=== PATIENT | female | born 1955 | race Native Hawaiian/Other Pacific Islander ===

== ENCOUNTER 2021-10-16 12:06 | Emergency (ER) | payer MEDICARE, OTHER, SELFPAY ==
[2021-10-16] VITALS (11 sets, daily range): BP systolic 123–150; BP diastolic 67–76; PULSE 72–89; RESP 16–24; TEMP 36.6–37.3; O2SAT 94–98; BMI 34.2
[2021-10-16 13:42] LABS: COVID19 -Nasal RAPID Negative (Negative)
[2021-10-16] MEDS: ALBUTEROL/IPRATROPIUM 3 ML AMPUL INH (13:51)
--- NOTE | 2021-10-16 13:56 | ED_ITS ---
HPI - Asthma General Chief Complaint: Asthma Stated Complaint: ongoing cold, progressively getting worse Time Seen by Provider: 10/16/21 13:37 Source: patient Mode of arrival: Ambulatory History of Present Illness HPI Narrative: Patient is a 66-year-old female. Is a daily smoker. Approximately 1 month ago was seen an outside facility. Was given an albuterol inhaler. Was also prescribed Advair but there has been some issues with insurance and she has yet to fill this. She was also given a course of doxycycline. She is here because she states she is still having quite a bit of wheezing. She has been using her inhaler without much improvement. She states she is coughing. No fevers. No chest pain. No diagnosis of asthma no diagnosis of COPD. Related Data Allergies Allergy/AdvReac Type Severity Reaction Status Date / Time No Known Drug Allergies Allergy Verified 10/16/21 12:09 Review of Systems Constitutional Constitutional: Reports system reviewed and no additional complaints, except as documented ENT Ears, Nose, Mouth, and Throat: Reports system reviewed and no additional complaints, except as documented Cardiovascular Cardiovascular: Reports system reviewed and no additional complaints, except as documented Respiratory Respiratory: Reports system reviewed and no additional complaints, except as documented Integumentary/Breasts Skin/Breast: Reports system reviewed and no additional complaints, except as documented Neurologic Neurologic: Reports system reviewed and no additional complaints, except as documented Hematologic/Lymphatic On Anticoagulants: No Patient History Social History Smoking Status: Current every day smoker Smoking Status: Current every day smoker alcohol intake frequency: holidays/special occasions only Substance Use Type: does not use Exam Initial Vital Signs Initial Vital Signs: Vital Signs Temperature 97.9 F 10/16/21 12:10 Pulse Rate 88 10/16/21 12:10 Respiratory Rate 24 10/16/21 12:10 Blood Pressure 138/68 10/16/21 12:10 Pulse Oximetry 96 10/16/21 12:10 HENMT Head: normal to inspection and normocephalic Resp Effort & Inspection: normal respiratory effort Auscultation: rhonchi and wheezes Cardio Rate: regular rate Rhythm: regular rhythm Skin General: no rashes or lesions noted Neuro General: patient alert, patient awake and moves all extremities Extrem General: normal to inspection and capillary refill normal Psych Appearance: grossly normal Course Orders Ordered: ED Orders 10/16/21 13:03 RT Consult Eval and Treat NOW 10/16/21 13:16 COVID19 -Nasal swab/Pre-Proc Stat 10/16/21 13:57 XR chest 1V Stat Discontinued Medications Albuterol/Ipratropium (Albuterol/Ipratropium 3 Ml Ampul) 3 ml INH NOW ONE Stop: 10/16/21 13:34 Last Admin: 10/16/21 13:51 Dose: 3 ml Documented by: CTR.TVO Vital Signs Vital signs: Vital Signs - 8 hr 10/16/21 12:10 10/16/21 12:58 10/16/21 12:59 Temperature 97.9 F Pulse Rate 88 89 Respiratory Rate 24 Blood Pressure 138/68 150/74 H Pulse Oximetry 96 98 95 10/16/21 13:00 10/16/21 13:02 10/16/21 13:30 Temperature 99.2 F Pulse Rate 84 83 74 Respiratory Rate 16 Blood Pressure 147/70 H 136/76 Pulse Oximetry 95 95 94 10/16/21 13:36 10/16/21 13:51 10/16/21 14:00 Temperature Pulse Rate 72 Respiratory Rate 18 Blood Pressure 123/67 Pulse Oximetry 96 94 96 10/16/21 14:27 10/16/21 14:30 Temperature Pulse Rate 77 79 Respiratory Rate Blood Pressure 139/68 134/71 Pulse Oximetry 95 94 MDM - Asthma Lab Data Labs: Lab Results 10/16/21 Range/Units 13:16 SARS-CoV-2 (PCR) Negative (Negative) Imaging Data Chest x-ray: Radiologist's Impression: [address] [address] XRay Report Signed Patient: Caitlin Nesbitt MR#: [id number] : 1955 Acct:[id number] Age/Sex: 66 / F Date of Service: 10/16/21 Loc: ED Accession Number: [id number] ?? Procedure: XR chest 1V Ordering Provider: Geovany Benson D.O. PROCEDURE:? XR CHEST 1V ? INDICATIONS:? productive cough eval for PNA ? TECHNIQUE:? One view of the chest was acquired.? ? COMPARISON:? None. ? FINDINGS:? ? Surgical changes and devices:? None.? ? Lungs and pleura:? Minimal patchy interstitial prominence can be seen.? No pleural effusions or pneumothorax.? ? Mediastinum:? Mediastinal contours appear normal.? Heart size is normal.? ? Bones and chest wall:? No suspicious bony lesions.? Age-appropriate bony de generative changes are seen. ? Overlying soft tissues appear unremarkable.? IMPRESSION:? Minimal patchy interstitial prominence is seen.? Please consider atypical infiltrate, including COVID pneumonia. ? If there is clinical concern for a developing pulmonary process, a short-term followup chest series (with PA and lateral views, performed in deep inspiration) is suggested for further evaluation. ? ? Dictated by: Jose Carlos Carreon M.D. on 10/16/2021 at 13:24 ? ? Approved by: Jose Carlos Carreon M.D. on 10/16/2021 at 13:25? MDM Narrative Medical decision making narrative: Patient did feel better and sounds much better after nebulizer. I do suspect there is a component of COPD to her presentation although she does not carry this specific diagnosis. We will send home with a spacer for her albuterol inhaler. Despite the chest x-ray do have low suspicion for pneumonia. She just completed a course of doxycycline. I do not feel we should start her on another course of antibiotics. Also considered steroids but I have a strong suspicion that the Advair will help as well. states that this should be worked out over the next couple days. Will discharge home with instructions to use your albuterol. She was given return precautions. She expressed understanding and agreement. Discharge Plan Departure Patient Disposition: Home Clinical Impression: Wheezing Instructions: DI for Asthma -- Adult Activity Restrictions/Additional Instructions: I do recommend that you contact the [facility] back [phone]. The can help you establish a primary provider. Use all the medications as directed. Return to the emergency department for any new or worsening symptoms. Referrals: Siobhan Oden, [Primary Care Provider] -
--- NOTE | 2021-10-16 13:57 | DI.RAD.S_ITS ---
PROCEDURE: XR CHEST 1V INDICATIONS: productive cough eval for PNA TECHNIQUE: One view of the chest was acquired. COMPARISON: None. FINDINGS: Surgical changes and devices: None. Lungs and pleura: Minimal patchy interstitial prominence can be seen. No pleural effusions or pneumothorax. Mediastinum: Mediastinal contours appear normal. Heart size is normal. Bones and chest wall: No suspicious bony lesions. Age-appropriate bony degenerative changes are seen. Overlying soft tissues appear unremarkable. IMPRESSION: Minimal patchy interstitial prominence is seen. Please consider atypical infiltrate, including COVID pneumonia. If there is clinical concern for a developing pulmonary process, a short-term followup chest series (with PA and lateral views, performed in deep inspiration) is suggested for further evaluation. Dictated by: Jose Carlos Carreon M.D. on 10/16/2021 at 13:24 Approved by: Jose Carlos Carreon M.D. on 10/16/2021 at 13:25
== END 2021-10-16 14:49 | disposition home or self-care (01) ==
PROVIDERS: Emergency Provider Emergency Medicine; PCP Family Medicine
DX: R06.2 Wheezing (principal); Z20.822 Contact with and (suspected) exposure to COVID-19
CPT/HCPCS: 71045; 87635; 94150; 94640; 99283; C9803

== ENCOUNTER → 2021-12-18 11:56 | Outpatient (CLI) | payer MEDICARE, OTHER, SELFPAY ==
[2021-12-18 12:53] LABS: Hematocrit 44.4 % (36-46); Hemoglobin 15.3 g/dL (12.0-16.0); Mean Corpuscular HGB Conc 34.4 % (30-36); Mean Corpuscular Hemoglobin 29.6 PG (26-34); Mean Corpuscular Volume 86.2 fL (80-100); Platelet Count 233 X10^3/uL (150-400); Red Blood Cell Count 5.15 X10^6/uL (4.0-5.2); Red Cell Distribution Width 14.6 % (11.6-14.8); White Blood Cell Count 6.5 X10^3/uL (4.5-11.0)
[2021-12-18 12:58] LABS: Hemoglobin A1C% w Est Avg Glu 5.8 % (4.0-6.0)
[2021-12-18 13:11] LABS: Alanine Aminotransferase 11 IU/L (<35); Albumin 4.4 g/dL (3.5-5.0); Albumin Globulin Ratio 1.5 (1.0-2.8); Alkaline Phosphatase 61 U/L (38-126); Aspartate Aminotransferase 19 IU/L (14-36); BUN Creatinine Ratio 15.5 (6-22); Bilirubin Total 0.5 mg/dL (0.2-1.3); Blood Urea Nitrogen 11 mg/dL (7-17); Carbon Dioxide 27 mmol/L (22-32); Chloride 105 mmol/L (98-107); Cholesterol 164 mg/dL (140-199); Estimated Glomerular Filt Rate > 60 mL/min (>60); Glucose 109 mg/dL (80-110); HDL Cholesterol 57 mg/dL (40-60); HEMOLYSIS < 15 (0-50); LDL Cholesterol Calculated 78 mg/dL (<100); Potassium 3.8 mmol/L (3.4-5.1); Sodium 141 mmol/L (137-145); Total Protein 7.4 g/dL (6.3-8.2); Triglycerides 145 mg/dL (35-150)
[2021-12-18 13:35] LABS: TSH w/ Reflex to FT4 1.23 uIU/mL (0.47-4.68)
== END ==
PROVIDERS: PCP Internal Medicine; Referring Provider Internal Medicine; Visit Provider Internal Medicine
DX: R73.01 Impaired fasting glucose (principal); J45.20 Mild intermittent asthma, uncomplicated
CPT/HCPCS: 36415; 80053; 80061; 83036; 84443; 85027

== ENCOUNTER → 2022-04-23 11:04 | Outpatient (CLI) | payer MEDICARE, OTHER, SELFPAY ==
--- NOTE | 2022-04-23 11:05 | DI.CT.S_ITS ---
PROCEDURE: CT CHEST WO CON INDICATIONS: followup abnormal chest xray TECHNIQUE: Noncontrast 5 mm thick sections acquired from the pulmonary apices to the posterior costophrenic angles. 1 mm lung window, 5 mm thick coronal and sagittal and 7 mm axial MIP reformats were then acquired. For radiation dose reduction, the following was used: automated exposure control, adjustment of mA and/or kV according to patient size. COMPARISON: [facility], , XR CHEST 1V, 10/16/2021, 14:10. FINDINGS: Image quality: Excellent. Lungs and pleura: No acute air space opacities. A calcified granuloma is present in the left lower lung. No pleural effusions or pneumothorax. Central and peripheral airways are patent and normal in caliber. Mediastinum: Heart size is normal. No pericardial effusion. No mediastinal adenopathy by size criteria. Thoracic aorta and central pulmonary arteries are normal in size. Scattered atheromatous calcifications are present within the aortic arch. Esophagus is normal in caliber. No hiatal hernia. Bones and chest wall: No suspicious bony lesions. No vertebral body compression fractures. No axillary or supraclavicular adenopathy by size criteria. Thyroid gland is unremarkable . Abdomen: Visualized upper abdominal solid organs and bowel loops appear normal in the absence of contrast. IMPRESSION: 1. No acute pulmonary findings. No suspicious pulmonary nodules or mass lesions. No discrete findings to correlate with the chest x-ray dated 10/23 09/18. Dictated by: Shawnee Alston M.D. on 04/23/2022 at 16:52 Approved by: Shawnee Alston M.D. on 04/23/2022 at 16:56
== END ==
PROVIDERS: PCP Internal Medicine; Referring Provider Internal Medicine; Visit Provider Internal Medicine
DX: Z13.820 Encounter for screening for osteoporosis (principal); M85.851 Other specified disorders of bone density and structure, right thigh; M85.852 Other specified disorders of bone density and structure, left thigh; R93.89 Abnormal findings on diagnostic imaging of other specified body structures; J45.20 Mild intermittent asthma, uncomplicated; Z78.0 Asymptomatic menopausal state; F17.200 Nicotine dependence, unspecified, uncomplicated
CPT/HCPCS: 71250; 77080

== ENCOUNTER → 2022-06-02 07:15 | Outpatient (CLI) | payer MEDICARE, OTHER, SELFPAY ==
--- NOTE | 2022-06-02 07:16 | DI.MG.S_ITS ---
BILATERAL DIGITAL SCREENING MAMMOGRAM 3D/2D WITH CAD: 06/02/2022 CLINICAL: Routine screening. Comparison is made to exams dated: 08/09/2020 mammogram, 06/24/2018 mammogram, and 06/02/2017 mammogram - outside location. There are scattered areas of fibroglandular density in both breasts (category b / 25%-50% glandular tissue). Current study was also evaluated with a Computer Aided Detection (CAD) system. No significant masses, calcifications, or other findings are seen in either breast. There has been no significant interval change. IMPRESSION: NEGATIVE There is no mammographic evidence of malignancy. A 1 year screening mammogram is recommended. Based on the Tyrer Cuzick model (a risk assessment model) the patient's lifetime risk is 3.1% and her 10 year risk is 1.7%. According to the ACR, ACS, and NCCN guidelines, an annual breast MRI exam along with mammogram is recommended if the patient's lifetime risk is 20% or greater. This exam was interpreted at Station ID: [id number]. NOTE: For mammograms, a report in lay terms will be sent to the patient. Approximately 15% of breast malignancies will not be visualized mammographically. In the management of a palpable breast mass, a negative mammogram must not discourage biopsy of a clinically suspicious lesion. Electronically Signed By: Matias coburn/savage:06/02/2022 12:26:52 letter sent: Normal Exam ACR BI-RADS Category 1: Negative 3341F
== END ==
PROVIDERS: PCP Internal Medicine; Referring Provider Internal Medicine; Visit Provider Internal Medicine
DX: Z12.31 Encounter for screening mammogram for malignant neoplasm of breast (principal)
CPT/HCPCS: 77063; 77067

== ENCOUNTER 2023-04-12 21:24 | Emergency (ER) | payer OTHER, MEDICARE, SELFPAY ==
[2023-04-12 21:33] VITALS: BP 144/67; PULSE 69; RESP 16; TEMP 36.6; O2SAT 97; BMI 30.7
--- NOTE | 2023-04-12 22:55 | ED.FALL ---
HPI - Fall General Chief Complaint: Fall Stated Complaint: fell and hit face/gash on nose Time Seen by Provider: 04/12/23 22:55 Source: patient Mode of arrival: Ambulatory History of Present Illness HPI Narrative: 68-year-old woman with a history of hyperlipidemia who [place] stumbled over a log fell forward and hit her glasses which caused abrasion to the bridge of her nose. She had a minor contusion to her right knee she was able to get up and walk back to the car without any difficulties she is complaining of a low-grade headache from the laceration over the bridge of her nose but no other findings. She is not anticoagulated she complains of no recent fevers, cough, chills, palpitations, shortness of breath Related Data Previous Rx's Medication Instructions Recorded albuterol sulfate 90 mcg/actuation 1 puff inhalation DAILY #8.5 grams 03/28/22 aerosol inhaler rosuvastatin 10 mg tablet 10 mg PO DAILY #90 tabs 03/28/22 azithromycin 250 mg tablet See Rx Instructions PO .COMPLEX #6 01/09/23 tabs prednisone 10 mg tablet See Rx Instructions .Route 01/09/23 .COMPLEX #20 tabs Allergies Allergy/AdvReac Type Severity Reaction Status Date / Time No Known Drug Allergies Allergy Verified 01/09/23 10:41 Review of Systems Review of Systems Narrative: Pertinent positive and negative findings as per HPI Patient History Medical History Abnormal chest xray Advanced directives, counseling/discussion Asthma Chicken pox (~1994) History of colonic polyps Impaired fasting glucose Measles (~1964) Medicare annual wellness visit, initial Menopausal syndrome Mumps (~1966) Obesity (BMI 30.0-34.9) Osteopenia Slow transit constipation Tobacco use disorder Surgical History Anesthesia History of bladder surgery (~2015) History of knee replacement (~2004) Family History Father Diabetes mellitus Mother Diabetes mellitus Hyperlipidemia Hypertension Brother Diabetes mellitus Hyperlipidemia Sister Diabetes mellitus Hyperlipidemia Family/Other Diabetes mellitus Hypertension Social History marital status: details: 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 Able to give a complete and coherent history. Well-nourished well-developed HEENT: Moist mucous membranes, normal sclera with reactive pupils, she has a small flap like laceration over the bridge of her nose where her glasses cut her. She does not have tenderness over her forehead or her maxilla. Does not note any dental malocclusion Neck: No midline cervical spine tenderness, no cervical paraspinous muscle spasm and no tenderness into the trapezius muscles bilaterally Respiratory: Lungs are clear to auscultation, no wheezing no rales no rhonchi. Full and symmetrical air movement Cardiac: Regular rate and rhythm no murmurs no bruits Abdomen: Soft, nontender, good bowel tones, no flank pain Skin: Warm and dry, no rashes Neurologic: Grossly neurologically intact with no obvious asymmetries or abnormalities Extremities: Small abrasion to the right knee with normal range of motion to the knee and hip. Psych: Cooperative, appropriate insight and affect Procedures Laceration Repair 1 cm bridge of nose: Time of procedure: 23:08 Site: face Size (cm): 1 Description: flap Depth: simple, single layer Skin layer closed with: dermabond Course Vital Signs Vital signs: Vital Signs - 8 hr 04/12/23 21:33 Temperature 97.9 F Pulse Rate 69 Respiratory Rate 16 Blood Pressure 144/67 H Pulse Oximetry 97 Oxygen Delivery Method Room Air MDM - Fall MDM Narrative Medical decision making narrative: CC: Fall with laceration to the bridge of her nose Complicating co-morbidities: Hyperlipidemia Data collected from: patient, daughter Medical records reviewed: Primary care notes reviewed Differential considered: Simple laceration, nasal bone fracture, midface fracture, intracranial hemorrhage, cervical spine injury, knee injury, upper extremity injuries Exam documented above, pertinent findings include: Minor laceration over the bridge of the nose and physical exam does not support any additional abnormalities musculoskeletal or axial skeletal montero Treatments: Skin glue was used to reapproximate the flap edges of the laceration over the bridge of the nose Discussion: 68-year-old woman who suffered a mechanical fall and mostly hit her glasses which caused laceration to the middle of her nose. She is going to have some black eyes but there does not appear to be any underlying bony injury, I am not concerned for intracranial hemorrhage or cervical spine damage. She does not have tenderness with full range of motion at shoulders elbows wrists. She is able to walk without difficulty and not complaining of any hip knee ankle or foot abnormalities. Did warn her that she likely is going to have some tenderness in all of these places over the next 24-48 hours. She is given ibuprofen and Tylenol to help with the pain. Reviewed reasons to return to the emergency department. Questions were answered and she is safe for discharge Discharge Plan Departure Patient Disposition: Home Clinical Impression: Fall Qualifiers: Encounter type: initial encounter Qualified Code(s): W19.XXXA - Unspecified fall, initial encounter Laceration of nose Qualifiers: Encounter type: initial encounter Qualified Code(s): S01.21XA - Laceration without foreign body of nose, initial encounter Instructions: DI for Laceration Repair-Skin Glue Activity Restrictions/Additional Instructions: Thank you for coming in today I am so glad that you had only a minor cut over the bridge of her nose with your fall today. On exam I did not find any areas that made me concerned for broken bones. I am not concerned for injury to your neck or bleeding in your brain. You are going to be sore in multiple places tomorrow. Using 400 mg of ibuprofen (2 leje-jhb-szqefec pills) and 1 Tylenol every 6 hours can be very helpful in controlling pain. I used skin glue to fix cut to the bridge of her nose. It would be best if you can leave this glue in place for up to 5 days. It will begin to peel off and you can gently help it at that point. It is okay to wash her face simply path the area dry and do not scrub or rub at the glued area If you find that you are getting worse or develop any new symptoms, please feel free to return to the emergency department for further evaluation. Prescriptions: No Action albuterol sulfate 90 mcg/actuation HFA aerosol inhaler 1 puff inhalation DAILY Qty: 8.5 11RF rosuvastatin 10 mg tablet 10 mg PO DAILY Qty: 90 3RF prednisone 10 mg tablet See Rx Instructions .Route .COMPLEX Qty: 20 2RF Rx Instructions: 4 tablets daily for 2 days, then 3 tablets daily for 2 days, then 2 tablets daily for 2 days, then 1 tablet daily for 2 days then stop; azithromycin 250 mg tablet See Rx Instructions PO .COMPLEX Qty: 6 0RF Rx Instructions: For 250 mg dose pack: take 500 mg today (day 1), then 250 mg for 4 days (days 2-5) PO Referrals: Bang Liu MD [Primary Care Provider] - Stand Alone Forms: Patient Portal/API, Work Release Note
[2023-04-12] MEDS: ACETAMINOPHEN 325 MG TABLET PO (23:07)
[2023-04-12] MEDS: IBUPROFEN 400 MG TABLET PO (23:08)
== END 2023-04-12 23:24 | disposition home or self-care (01) ==
PROVIDERS: Emergency Provider Emergency Medicine; PCP Internal Medicine
DX: S01.21XA Laceration without foreign body of nose, initial encounter (principal); W01.0XXA Fall on same level from slipping, tripping and stumbling without subsequent striking against object, initial encounter
CPT/HCPCS: 12011; 99282; 99283

== ENCOUNTER → 2023-04-23 15:24 | Outpatient (CLI) | payer OTHER, MEDICARE, SELFPAY ==
[2023-04-23 16:20] LABS: Hemoglobin A1C% w Est Avg Glu 5.6 % (4.0-6.0)
[2023-04-23 16:39] LABS: Aspartate Aminotransferase 22 IU/L (14-36); BUN Creatinine Ratio 20.5 (6-22); Blood Urea Nitrogen 15 mg/dL (7-17); Calcium 9.2 mg/dL (8.4-10.2); Carbon Dioxide 26 mmol/L (22-32); Chloride 104 mmol/L (98-107); Cholesterol 152 mg/dL (140-199); Estimated Glomerular Filt Rate > 60 mL/min (>60); Glucose 97 mg/dL (80-110); HDL Cholesterol 46 mg/dL (40-60); HEMOLYSIS 22 (0-50); LDL Cholesterol Calculated 65 mg/dL (<100); Potassium 3.8 mmol/L (3.4-5.1); Sodium 138 mmol/L (137-145); Triglycerides 204 mg/dL (35-150)
== END ==
PROVIDERS: PCP Internal Medicine; Referring Provider Internal Medicine; Visit Provider Internal Medicine
DX: E78.2 Mixed hyperlipidemia (principal); R73.01 Impaired fasting glucose
CPT/HCPCS: 36415; 80048; 80061; 83036; 84450

== ENCOUNTER → 2023-06-25 13:42 | Outpatient (CLI) | payer OTHER, MEDICARE, SELFPAY ==
--- NOTE | 2023-06-25 | DI.MG.S_ITS ---
BILATERAL DIGITAL SCREENING MAMMOGRAM 3D/2D WITH CAD: 06/25/2023 CLINICAL: Routine screening. Comparison is made to exams dated: 06/02/2022 mammogram - [facility], 08/09/2020 mammogram, and 06/24/2018 mammogram - outside location. There are scattered areas of fibroglandular density in both breasts (category b / 25%-50% glandular tissue). Current study was also evaluated with a Computer Aided Detection (CAD) system. No significant masses, calcifications, or other findings are seen in either breast. There has been no significant interval change. IMPRESSION: NEGATIVE There is no mammographic evidence of malignancy. A 1 year screening mammogram is recommended. Based on the Tyrer Cuzick model (a risk assessment model) the patient's lifetime risk is 2.9% and her 10 year risk is 1.7%. According to the ACR, ACS, and NCCN guidelines, an annual breast MRI exam along with mammogram is recommended if the patient's lifetime risk is 20% or greater. This exam was interpreted at Station ID: [id number]. NOTE: For mammograms, a report in lay terms will be sent to the patient. Approximately 15% of breast malignancies will not be visualized mammographically. In the management of a palpable breast mass, a negative mammogram must not discourage biopsy of a clinically suspicious lesion. Electronically Signed By: Clint montoya/savage:06/25/2023 14:24:14 letter sent: Normal Exam ACR BI-RADS Category 1: Negative 3341F
== END ==
PROVIDERS: PCP Internal Medicine; Referring Provider Internal Medicine; Visit Provider Internal Medicine
DX: Z12.31 Encounter for screening mammogram for malignant neoplasm of breast (principal)
CPT/HCPCS: 77063; 77067

== ENCOUNTER → 2024-01-20 09:16 | Outpatient (CLI) | payer OTHER, MEDICARE, SELFPAY | LOC: RESP 09:17 | PROVIDERS: PCP Internal Medicine; Referring Provider Internal Medicine; Visit Provider Internal Medicine | DX: J44.9 Chronic obstructive pulmonary disease, unspecified (principal); F17.210 Nicotine dependence, cigarettes, uncomplicated; R94.2 Abnormal results of pulmonary function studies | CPT/HCPCS: 94060; 94726; 94729 ==

== ENCOUNTER → 2024-04-27 16:14 | Outpatient (CLI) | payer OTHER, MEDICARE, SELFPAY ==
[2024-04-27 17:28] LABS: Hematocrit 45.2 % (36-46); Hemoglobin 15.2 g/dL (12.0-16.0); Mean Corpuscular HGB Conc 33.6 % (30-36); Mean Corpuscular Hemoglobin 30.1 PG (26-34); Mean Corpuscular Volume 89.5 fL (80-100); Platelet Count 222 X10^3/uL (150-400); Red Blood Cell Count 5.04 X10^6/uL (4.0-5.2); Red Cell Distribution Width 14.6 % (11.6-14.8); White Blood Cell Count 6.5 X10^3/uL (4.5-11.0)
[2024-04-27 17:48] LABS: Alanine Aminotransferase 12 IU/L (<35); Albumin 4.3 g/dL (3.5-5.0); Albumin Globulin Ratio 1.3 (1.0-2.8); Alkaline Phosphatase 60 U/L (38-126); Aspartate Aminotransferase 21 IU/L (14-36); BUN Creatinine Ratio 16.9 (6-22); Bilirubin Total 0.7 mg/dL (0.2-1.3); Blood Urea Nitrogen 14 mg/dL (7-17); Calcium 9.5 mg/dL (8.4-10.2); Carbon Dioxide 29 mmol/L (22-32); Chloride 102 mmol/L (98-107); Cholesterol 171 mg/dL (140-199); Estimated Glomerular Filt Rate > 60 mL/min (>60); Globulin 3.4 g/dL (1.7-4.1); Glucose 101 mg/dL (80-110); HDL Cholesterol 57 mg/dL (40-60); HEMOLYSIS < 15 (0-50); LDL Cholesterol Calculated 77 mg/dL (<100); Potassium 3.7 mmol/L (3.4-5.1); Sodium 137 mmol/L (137-145); Total Protein 7.7 g/dL (6.3-8.2); Triglycerides 183 mg/dL (35-150)
[2024-04-27 20:43] LABS: Hemoglobin A1C% w Est Avg Glu 5.6 % (4.0-6.0)
== END ==
PROVIDERS: PCP Internal Medicine; Referring Provider Internal Medicine; Visit Provider Internal Medicine
DX: R73.01 Impaired fasting glucose (principal); E78.2 Mixed hyperlipidemia; K59.01 Slow transit constipation
CPT/HCPCS: 36415; 80053; 80061; 83036; 85027

== ENCOUNTER → 2024-05-04 09:11 | Outpatient (CLI) | payer OTHER, MEDICARE, SELFPAY ==
--- NOTE | 2024-05-04 09:12 | DI.CT.S_ITS ---
PROCEDURE: CT LUNG LOW DOSE SCREENING INDICATIONS: tobacco use TECHNIQUE: Noncontrast 2.0-2.5 mm thick sections acquired from the pulmonary apices to the posterior costophrenic angles. 7 mm thick axial MIP, and 5 mm coronal and sagittal reformats were then acquired. For radiation dose reduction, the following was used: automated exposure control, adjustment of mA and/or kV according to patient size. COMPARISON: None. FINDINGS: Image quality: Diagnostic. Lower Neck: No enlarged lymph nodes. Thyroid: No thyroid nodules which require sonographic follow up, per consensus guidelines. Axillae: No enlarged lymph nodes. Chest Wall: Unremarkable. Bones: Unremarkable. Lungs and Pleura: No pneumothorax or pleural effusions. No consolidation or suspicious nodules. Calcified pulmonary granuloma. Heart: Heart size is normal. No pericardial effusion. Thoracic Vessels: The aorta and pulmonary arteries demonstrate normal size. Mediastinum and Alessandra: No enlarged lymph nodes. Esophagus: No wall thickening. No hiatal hernia. Upper Abdomen: Visualized upper abdomen solid organs and bowel loops appear normal. IMPRESSION: No suspicious pulmonary nodules. LUNG-RADS 1; continued annual screening, if eligible. Clinically Significant Non-pulmonary Findings: None. Approved by: Carolina Bustos M.D.,Ph.D. on 05/04/2024 at 23:57
== END ==
LOC: CT 09:11
PROVIDERS: PCP Internal Medicine; Referring Provider Internal Medicine; Visit Provider Internal Medicine
DX: Z12.2 Encounter for screening for malignant neoplasm of respiratory organs (principal); F17.210 Nicotine dependence, cigarettes, uncomplicated
CPT/HCPCS: 71271

== ENCOUNTER → 2025-01-20 08:20 | Outpatient (CLI) | payer OTHER, MEDICARE, SELFPAY ==
--- NOTE | 2025-01-20 08:22 | DI.MG.S_ITS ---
MM screening mammo BI: 01/20/2025. BI-RADS: 1 CLINICAL: 69-year old female for bilateral screening mammogram. Tyrer-Cuzick lifetime risk of 5.7%. Current reported family history of breast cancer: mother. PRIOR EXAMS 06/25/2023, 06/02/2022, 06/24/2018, and 06/02/2017. MAMMOGRAPHY TECHNIQUE: 2D and 3D (tomosynthesis) digital mammographic views obtained, with additional images as needed for full coverage. Current study was also evaluated with a Computer Aided Detection (CAD) system. DENSITY B. There are scattered areas of fibroglandular density. MAMMOGRAPHY FINDINGS Bilateral: No suspicious mass, asymmetry, microcalcification, or other abnormality seen. IMPRESSION: * No evidence of malignancy. RECOMMENDATIONS Bilateral * Annual screening mammography. OVERALL ASSESSMENT CATEGORY BI-RADS-1: Negative. The [employer] recommends annual screening mammography beginning at age 40 for women with average risk of breast cancer. PRELIMINARILY ELECTRONICALLY SIGNED: Haris Martins M.D. on 01/22/2025 at 09:12:42 PM PT ELECTRONICALLY SIGNED: Haris Martins M.D. on 01/22/2025 at 09:12:55 PM PT Interpreting Station ID: [id number]
== END ==
PROVIDERS: PCP Internal Medicine; Referring Provider Internal Medicine; Visit Provider Internal Medicine
DX: Z12.31 Encounter for screening mammogram for malignant neoplasm of breast (principal); Z80.3 Family history of malignant neoplasm of breast
CPT/HCPCS: 77063; 77067

== ENCOUNTER → 2025-05-02 15:09 | Outpatient (CLI) | payer OTHER, MEDICARE, SELFPAY ==
--- NOTE | 2025-05-02 15:13 | DI.RAD.S_ITS ---
PROCEDURE: XR HAND LT 2V INDICATIONS: arthritis TECHNIQUE: 2 views of the hand(s) acquired. COMPARISON: None. FINDINGS: Bones: No fractures or dislocations. Carpal bones are normally aligned. Possible sclerosis in the lunate There is moderate degenerative disease in the 2nd through 5th DIP joints as well as in the 1st IP joint and 3rd and 4th PIP joints. Mild degenerative disease in the radiocarpal joint. There is also positive ulnar variance with significant effacement of the triangular fibrocartilage. Soft tissues: No suspicious soft tissue calcifications. IMPRESSION: 1. Degenerative changes as described. No definite erosions. 2. Positive ulnar variance with effacement of the triangular fibrocartilage. 3. Possible [place] disease, can be further assessed with oblique view. Dictated by: Omar Felipe M.D. on 05/02/2025 at 20:59 Approved by: Omar Felipe M.D. on 05/02/2025 at 21:02
--- NOTE | 2025-05-02 15:13 | DI.RAD.S_ITS ---
PROCEDURE: XR HAND RT 2V INDICATIONS: arthritis TECHNIQUE: 2 views of the hand(s) acquired. COMPARISON: None. FINDINGS: Bones: No fractures or dislocations. Carpal bones are normally aligned. No suspicious bony lesions. There is severe degenerative disease in the 5th DIP joint as well as moderate to severe degenerative disease in the 4th PIP joint and moderate degenerative changes in the 2nd through 4th DIP joints. Mild degenerative disease in the 1st ray as well as in the wrist. Soft tissues: No suspicious soft tissue calcifications. IMPRESSION: Degenerative changes as above, no acute focal osseous lesion or definite erosion seen. Dictated by: Omar Felipe M.D. on 05/02/2025 at 21:02 Approved by: Omar Felipe M.D. on 05/02/2025 at 21:03
[2025-05-02 16:41] LABS: Hemoglobin A1C% w Est Avg Glu 6.1 % (4.0-6.0)
[2025-05-02 16:57] LABS: Blood Urea Nitrogen 13 mg/dL (7-17); Calcium 8.9 mg/dL (8.4-10.2); Carbon Dioxide 28 mmol/L (22-32); Chloride 104 mmol/L (98-107); Cholesterol 166 mg/dL (140-199); Estimated Glomerular Filt Rate > 60 mL/min (>60); Glucose 85 mg/dL (70-99); HDL Cholesterol 62 mg/dL (40-60); HEMOLYSIS < 15 (0-50); Potassium 4.3 mmol/L (3.4-5.1); Sodium 139 mmol/L (137-145); Triglycerides 124 mg/dL (35-150)
[2025-05-02 17:25] LABS: TSH w/ Reflex to FT4 2.05 uIU/mL (0.47-4.68)
== END ==
PROVIDERS: PCP Internal Medicine; Referring Provider Internal Medicine; Visit Provider Internal Medicine
DX: R73.01 Impaired fasting glucose (principal); E78.2 Mixed hyperlipidemia; M15.0 Primary generalized (osteo)arthritis
CPT/HCPCS: 36415; 73120; 80048; 80061; 83036; 84443; 84450

== ENCOUNTER → 2025-05-12 08:24 | Outpatient (CLI) | payer OTHER, MEDICARE, SELFPAY ==
--- NOTE | 2025-05-12 08:25 | DI.CT.S_ITS ---
PROCEDURE: CT LUNG LOW DOSE SCREENING INDICATIONS: Lung screening TECHNIQUE: Noncontrast 2.0-2.5 mm thick sections acquired from the pulmonary apices to the posterior costophrenic angles. 7 mm thick axial MIP, and 5 mm coronal and sagittal reformats were then acquired. For radiation dose reduction, the following was used: automated exposure control, adjustment of mA and/or kV according to patient size. COMPARISON: [facility], CT, CT CHEST WO CON, 04/23/2022, 11:35. [facility], CT, CT LUNG LOW DOSE SCREENING, 05/04/2024, 9:17. FINDINGS: Image quality: Diagnostic. Lower Neck: No enlarged lymph nodes. Thyroid: No thyroid nodules which require sonographic follow up, per consensus guidelines. Axillae: No enlarged lymph nodes. Chest Wall: Unremarkable. Bones: Sclerotic appearance of the right 7th rib and posterior 8th rib, unchanged dating back to at least 2021 and likely benign. Lungs and Pleura: No pneumothorax or pleural effusions. 9 calcified granuloma at the posterior medial left lung base. No consolidation or suspicious nodules. Heart: Heart size is normal. No pericardial effusion. Thoracic Vessels: The aorta and pulmonary arteries demonstrate normal size. Mediastinum and Alessandra: No enlarged lymph nodes. Esophagus: No wall thickening. No hiatal hernia. Upper Abdomen: Colonic diverticulosis. IMPRESSION: No suspicious pulmonary nodules. LUNG-RADS 1; continued annual screening, if eligible. Clinically Significant Non-pulmonary Findings: None. Approved by: Alexandru Rendon M.D. on 05/12/2025 at 13:57
== END ==
LOC: CT 08:24
PROVIDERS: PCP Internal Medicine; Referring Provider Internal Medicine; Visit Provider Internal Medicine
DX: F17.210 Nicotine dependence, cigarettes, uncomplicated (principal)
CPT/HCPCS: 71271

== ENCOUNTER 2025-06-15 21:32 | Observation (INO) | payer OTHER, MEDICARE, SELFPAY ==
--- NOTE | 2025-06-15 21:44 | ED_ITS ---
HPI - SOB/Dyspnea General Chief Complaint: Upper Respiratory Symptoms Stated Complaint: Poss asthma attack, SOB Time Seen by Provider: 06/15/25 21:42 History of Present Illness HPI Narrative: Patient is a 70-year-old female with a past medical history of asthma, comes into the ED from home for evaluation of shortness breath, patient is a daily smoker, comes into the ED from home for evaluation of wheeze cough shortness breath ongoing persistent for the past few days, states she tried using her inhaler without much relief therefore came into the ED for further evaluation treatment. At time of evaluation patient with expiratory wheezes bilaterally in all lung lock but protecting airway no voice changes no stridor no trismus denies any other symptoms such as headache visual disturbance chest pain fever chills nausea vomiting abdominal pain or any other GI/ symptoms at this time Related Data Previous Rx's ?Medication ?Instructions ?Recorded albuterol sulfate 90 mcg/actuation 1 puff inhalation D AILY #25.5 grams 05/16/25 aerosol inhaler fluticasone propionate 250 1 inh inhalation BID #180 e a 05/16/25 mcg/actuation blister powder for inhalation rosuvastatin 10 mg tablet 10 mg PO DAILY #90 tabs 04/27 08/20 Allergies Allergy/AdvReac Type Severity Reaction Status Date / Time No Known Drug Allergies Allergy Verified 06/15/25 21:46 Review of Systems Review of Systems Narrative: General: Denies fever, chills, weight loss HEENT: Denies headache, eye drainage, eye irritation, head trauma, sore throat, voice change Cardiovascular: Denies any chest pain, palpitations, tachycardia Respiratory: Positive shortness of breath GI/: Denies any abdominal pain, nausea, vomiting, diarrhea, bright red blood per rectum, melanotic stools, urinary frequency, urinary retention, dysuria, hematuria MSK: Denies any joint pain, muscle pains, swelling Skin: Denies any rashes, lesions, discoloration Neuro: Denies any headache, lightheadedness, dizziness, fainting, weakness Psych: Denies SI/HI Patient History Medical History Asthma Chicken pox (~1994) History of colonic polyps Impaired fasting glucose Measles (~1964) Menopausal syndrome Mixed hyperlipidemia Mumps (~1966) Obesity (BMI 30.0-34.9) Osteopenia Primary osteoarthritis involving multiple joints Slow transit constipation Tobacco use disorder Surgical History Anesthesia History of bladder surgery (~2015) History of knee replacement (~2004) Family History Father Diabetes mellitus Mother Diabetes mellitus Hyperlipidemia Hypertension Brother Diabetes mellitus Hyperlipidemia Sister Diabetes mellitus Hyperlipidemia Family/Other Diabetes mellitus Hypertension Social History marital status: details: 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, 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 Smoking Status: Current every day smoker alcohol intake frequency: holidays/special occasions only Exam Narrative Exam Narrative: General: Cooperative, well-developed, not in acute distress HEENT: Normocephalic, atraumatic, PERRLA, normal sclera, eyelids normal Neck: Active full range of motion, atraumatic Chest: Normal to inspection, negative crepitus, no overlying erythema ecchymosis Respiratory: Patient with diffuse expiratory wheezes bilaterally, patient is however speaking in full sentences protecting airway no voice changes no stridor no trismus coughing on exam Cardiology: Regular rate rhythm negative gallop, murmur, rubs GI/: No tenderness to palpation, soft, non rigid, normal to inspection, exam deferred MSK: Full active range of motion in all 4 extremities, atraumatic, no tenderness to palpation of any bony prominences Skin: No rashes or lesions noted Neuro: Alert awake oriented x3, moves all 4 extremities spontaneously, cranial nerves intact, able to answer all questions appropriately follows commands appropriately Psych: Cooperative, negative suicidal or homicidal ideations Initial Vital Signs Initial Vital Signs: Vital Signs Temperature 98 F 06/15/25 21:46 Pulse Rate 94 H 06/15/25 21:46 Respiratory Rate 16 06/15/25 21:46 Blood Pressure 158/98 H 06/15/25 21:46 Pulse Oximetry 93 06/15/25 21:46 Oxygen Delivery Method Room Air 06/15/25 21:46 Course Orders Ordered: ED Orders 06/15/25 21:49 XR chest 1V Stat Covid-19 + FLU A/B + RSV - PCR Stat EKG-12 Lead Stat 06/15/25 22:02 Complete Blood Count AUTO DIFF Stat Comprehensive Metabolic Panel Stat Lipase Stat Magnesium Stat NT-proBNP (BNP-Adult 18+) Stat Troponin I Stat Discontinued Medications Albuterol (Albuterol 2.5 Mg/3 Ml Neb (Adult)) 2.5 mg INH NOW ONE Stop: 06/15/25 21:50 Last Admin: 06/15/25 22:04 Dose: 2.5 mg Documented By: MIKE Albuterol (Albuterol 2.5 Mg/3 Ml Neb (Adult)) 2.5 mg INH NOW ONE Stop: 06/15/25 22:50 Last Admin: 06/15/25 22:58 Dose: 2.5 mg Albuterol/Ipratropium (Albuterol/Ipratropium 3 Ml Ampul) 3 ml INH NOW ONE Stop: 06/15/25 21:50 Last Admin: 06/15/25 22:04 Dose: 3 ml Documented By: MIKE Magnesium Sulfate (Magnesium Sulfate) 2 gm in 50 mls @ 150 mls/hr IV NOW ONE Stop: 06/15/25 22:08 Last Admin: 06/15/25 22:11 Dose: 150 mls/hr Documented By: MIKE Co-signed By: SCOTT Methylprednisolone (Methylprednisolone Succ 125 Mg/2 Ml Vial) 125 mg IV NOW ONE Stop: 06/15/25 21:50 Last Admin: 06/15/25 22:12 Dose: 125 mg Documented By: MIKE Vital Signs Vital signs: Vital Signs - 8 hr 06/15/25 21:46 06/15/25 22:28 06/15/25 22:30 Temperature 98 F Pulse Rate 94 H 106 H Respiratory Rate 16 25 H Blood Pressure 158/98 H 153/72 H Pulse Oximetry 93 94 Oxygen Delivery Method Room Air Nasal Cannula Oxygen Flow Rate 2 06/15/25 22:30 06/15/25 23:00 06/15/25 23:00 Temperature Pulse Rate 105 H 108 H Respiratory Rate 26 H 28 H Blood Pressure 131/84 Pulse Oximetry 93 90 L Oxygen Delivery Method Nasal Cannula Oxygen Flow Rate 2 06/15/25 23:07 Temperature Pulse Rate 104 H Respiratory Rate 22 Blood Pressure Pulse Oximetry 93 Oxygen Delivery Method Room Air Oxygen Flow Rate MDM - SOB/Dyspnea Lab Data 06/15/25 22:02 06/15/25 22:02 Labs: Lab Results 06/15/25 Range/Units 22:02 WBC 7.8 (4.5-11.0) X10^3/uL RBC 5.53 H (4.0-5.2) X10^6/uL Hgb 16.2 H (12.0-16.0) g/dL Hct 48.0 H (36-46) % MCV 86.9 (80-100) fL MCH 29.3 (26-34) PG MCHC 33.7 (30-36) % RDW 14.0 (11.6-14.8) % Plt Count 238 (150-400) X10^3/uL Neut % (Auto) 69.6 (50-75) % Lymph % (Auto) 21.3 L (25-40) % [place] % (Auto) 6.2 (3-14) % Eos % (Auto) 1.5 L (2-4) % Baso % (Auto) 1.4 (0-2) % Neut # (Auto) 5400 (2936-9103) /uL Lymph # (Auto) 1700 (5414-1707) /uL [place] # (Auto) 500 (0-900) /uL Eos # (Auto) 100 (0-450) /uL Baso # (Auto) 100 (0-100) /uL Sodium 141 (137-145) mmol/L Potassium 4.0 (3.4-5.1) mmol/L Chloride 104 (98-107) mmol/L Carbon Dioxide 25 (22-32) mmol/L BUN 11 (7-17) mg/dL Creatinine 0.74 (0.52-1.04) mg/dL Estimated GFR > 60 (>60) mL/min BUN/Creatinine Ratio 14.9 (6-22) Glucose 124 H (70-99) mg/dL Calcium 9.0 (8.4-10.2) mg/dL Magnesium 2.1 (1.6-2.3) mg/dL Total Bilirubin 0.8 (0.2-1.3) mg/dL AST 24 (14-36) IU/L ALT 18 (<35) IU/L Alkaline Phosphatase 79 (38-126) U/L Troponin I < 0.012 (0.01-0.034) ng/mL NT-Pro-B Natriuret Pep 114 (<125) pg/mL Total Protein 8.8 H (6.3-8.2) g/dL Albumin 4.9 (3.5-5.0) g/dL Globulin 3.9 (1.7-4.1) g/dL Albumin/Globulin Ratio 1.3 (1.0-2.8) Lipase 68 (23-300) U/L ECG Data Interpretation: EKG interpreted ED physician sinus tachycardia 103 beats per minute, QTC 489, QRS [place] interval within normal limits, no STEMI MDM Narrative Medical decision making narrative: Patient is a 70-year-old female with a history of hyperlipidemia hypertension asthma daily smoker and presenting for shortness breath ongoing persistent for the past few days, at time of evaluation significant bilateral expiratory wheezes in all lung lock but patient was placed on 2 L nasal cannula upon arrival given oxygen 90% with ambulation, speaking full sentences protecting airway. One hundred twenty-five Solu-Medrol, 2 g Mag, albuterol DuoNeb ordered. EKG was nonischemic in nature. Patient without any leukocytosis, no electrolyte abnormality, troponin negative BNP normal, chest x-ray without any acute cardiopulmonary abnormality, patient had some mild improvement of symptoms after 2 albuterol 1 DuoNeb, however with ambulation patient does drop to low 90s high 80s/with conversation, patient is still with some mild wheezes to bilateral lung lock however patient is taking away not in acute respiratory distress, given persistent symptoms and need for oxygen patient will be admitted to the hospital for continued evaluation treatment The patient's management plan was discussed Dr. Fang, who agrees to admit the patient to their service and assumes care of this patient at this time. Full admission orders will be placed by the primary team. Discharge Plan Departure Patient Disposition: Admitted as Observation Clinical Impression: Acute exacerbation of chronic obstructive pulmonary disease, Acute hypoxemic respiratory failure
[2025-06-15 21:46] VITALS: BP 158/98; PULSE 94; RESP 16; TEMP 36.6; O2SAT 93; BMI 32.1
--- NOTE | 2025-06-15 21:49 | DI.RAD.S_ITS ---
PROCEDURE: XR CHEST 1V INDICATIONS: sob TECHNIQUE: One view of the chest was acquired. COMPARISON: [facility], CR, XR CHEST 1V, 10/16/2021, 14:10. FINDINGS: Surgical changes and devices: None. Lungs and pleura: Lungs are clear. No pleural effusions or pneumothorax. Mediastinum: Mediastinal contours appear normal. Heart size is normal. Bones and chest wall: No suspicious bony lesions. Overlying soft tissues appear unremarkable. IMPRESSION: No acute cardiopulmonary abnormality is seen. Approved by: Carolina Bustos M.D.,Ph.D. on 06/15/2025 at 23:31
[2025-06-15] MEDS: ALBUTEROL/IPRATROPIUM 3 ML AMPUL INH (22:04)
[2025-06-15] MEDS: ALBUTEROL 2.5 MG/3 ML NEB (ADULT) INH ×2 (22:04→22:58)
[2025-06-15] MEDS: MAGNESIUM SULFATE 2 GM/50 ML PIGGYBACK IV (22:11)
[2025-06-15] MEDS: methylPREDNISolone succ 125 MG/2 ML VIAL IV (22:12)
--- NOTE | 2025-06-15 22:12 | EKG_ITS ---
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
--- NOTE | 2025-06-15 22:13 | EKG_ITS ---
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
[2025-06-15 22:16] LABS: Add Manual Diff / Slide Review NO; Hematocrit 48.0 % (36-46); Hemoglobin 16.2 g/dL (12.0-16.0); Lymphocytes Absolute Auto 1700 /uL (1100-4500); Mean Corpuscular HGB Conc 33.7 % (30-36); Mean Corpuscular Hemoglobin 29.3 PG (26-34); Mean Corpuscular Volume 86.9 fL (80-100); Platelet Count 238 X10^3/uL (150-400)
[2025-06-15 22:26] LABS: Alanine Aminotransferase 18 IU/L (<35); Albumin 4.9 g/dL (3.5-5.0); Albumin Globulin Ratio 1.3 (1.0-2.8); Alkaline Phosphatase 79 U/L (38-126); Blood Urea Nitrogen 11 mg/dL (7-17); Calcium 9.0 mg/dL (8.4-10.2); Carbon Dioxide 25 mmol/L (22-32); Chloride 104 mmol/L (98-107); Estimated Glomerular Filt Rate > 60 mL/min (>60); Globulin 3.9 g/dL (1.7-4.1); Glucose 124 mg/dL (70-99); HEMOLYSIS 16 (0-50); Lipase 68 U/L (23-300); Magnesium 2.1 mg/dL (1.6-2.3); Potassium 4.0 mmol/L (3.4-5.1); Sodium 141 mmol/L (137-145); Total Protein 8.8 g/dL (6.3-8.2)
[2025-06-15 22:28] VITALS: PULSE 106; RESP 25; O2SAT 94
[2025-06-15 22:30] VITALS: BP 153/72; PULSE 105; RESP 26; O2SAT 93
[2025-06-15 22:38] LABS: NT-proBNP (BNP-Adult 18+) 114 pg/mL (<125); Troponin I < 0.012 ng/mL (0.01-0.034)
[2025-06-15 23:00] VITALS: BP 131/84; PULSE 108; RESP 28; O2SAT 90
[2025-06-15 23:07] VITALS: PULSE 104; RESP 22; O2SAT 93
[2025-06-15 23:30] VITALS: BP 135/65; PULSE 102; RESP 19; O2SAT 93
[2025-06-15 23:34] LABS: Influenza A - CEPHEID Flu A NEGATIVE (NEGATIVE); Influenza B - CEPHEID Flu B NEGATIVE (NEGATIVE)
[2025-06-15 23:35] LABS: COVID-19 CEPHEID 4-PLEX PCR Negative (Negative)
[2025-06-16] VITALS (20 sets, daily range): BP systolic 112–142; BP diastolic 55–66; PULSE 73–101; RESP 16–22; TEMP 36.6; O2SAT 91–96; BMI 32.1
[2025-06-16] MEDS: AZITHROMYCIN 500 MG in DEXTROSE 5% IN WATER 250 ML 250 MG IV (00:30)
[2025-06-16] MEDS: methylPREDNISolone succ 125 MG/2 ML VIAL 40 MG IV ×2 (04:04→09:50)
[2025-06-16 05:36] LABS: MRSA (Nasal) PCR NOT DETECTED (Not Detect)
--- NOTE | 2025-06-16 06:15 | PM.HP.1 ---
History of Present Illness History of Present Illness Chief complaint: Poss asthma attack, SOB Narrative: 70 years old female with history of COPD, hyperlipidemia presented to the ER with shortness of breath, wheezing and persistent cough for the last several days getting progressively worse despite using her rescue inhalers. The patient denies any fever, chest pain, palpitations, cold symptoms, nausea, vomiting or abdominal pain. Laboratory unremarkable. Chest x-ray unremarkable. EKG nonischemic. She was given DuoNeb, albuterol, Solu-Medrol 125 mg IV and magnesium 2 g IV. Despite the treatment she was borderline hypoxic and was decided to be admitted to hospital for further management. [facility] Medical History Asthma Chicken pox (~1994) History of colonic polyps Impaired fasting glucose Measles (~1964) Menopausal syndrome Mixed hyperlipidemia Mumps (~1966) Obesity (BMI 30.0-34.9) Osteopenia Primary osteoarthritis involving multiple joints Slow transit constipation Tobacco use disorder Surgical History Anesthesia History of bladder surgery (~2015) History of knee replacement (~2004) Family History Father Diabetes mellitus Mother Diabetes mellitus Hyperlipidemia Hypertension Brother Diabetes mellitus Hyperlipidemia Sister Diabetes mellitus Hyperlipidemia Family/Other Diabetes mellitus Hypertension 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 History 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 status: 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, 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 Smoking Status: Current every day smoker Meds Home Medications and Allergies Home Medications ?Medication ?Instructions ?Recorded ?Confirmed ?Type albuterol sulfate 90 mcg/actuation 1 puff inhalation DAILY #25.5 grams 05/16/25 05/16/25 Rx aerosol inhaler fluticasone propionate 250 1 inh inhalation BID #180 ea 05/16/25 05/16/25 Rx mcg/actuation blister powder for inhalation rosuvastatin 10 mg tablet 10 mg PO DAILY #90 tabs 05/16/25 05/16/25 Rx Allergies Allergy/AdvReac Type Severity Reaction Status Date / Time No Known Drug Allergies Allergy Verified 06/15/25 21:46 Review of Systems Review of Systems ROS: Yes All systems reviewed with the patient and are negative except as otherwise documented Constitutional Constitutional: Reports as per HPI and Reports system reviewed and no additional complaints, except as documented Eyes Eyes: Reports as per HPI and Reports system reviewed and no additional complaints, except as documented ENT Ears, Nose, Mouth, and Throat: Yes as per HPI and Yes system reviewed and no additional complaints, except as documented Cardiovascular Cardiovascular: Reports system reviewed and no additional complaints, except as documented Respiratory Respiratory: Reports system reviewed and no additional complaints, except as documented Gastrointestinal Gastrointestinal: Reports system reviewed and no additional complaints, except as documented Genitourinary Genitourinary: Reports system reviewed and no additional complaints, except as documented Musculoskeletal Musculoskeletal: Reports system reviewed and no additional complaints, except as documented, Reports abnormal gait and Reports numbness Neurologic Neurologic: Reports system reviewed and no additional complaints, except as documented, Reports abnormal gait, Reports confusion and Reports numbness Psychiatric Psychiatric: Reports system reviewed and no additional complaints, except as documented and Reports confusion Exam Vital Signs (past 8 hours): - 06/15/25 22:28 06/15/25 22:30 06/15/25 22:30 Pulse Rate 106 H 105 H Respiratory Rate 25 H 26 H Blood Pressure 153/72 H Pulse Oximetry 94 93 Oxygen Delivery Method Nasal Cannula Nasal Cannula Oxygen Flow Rate 2 2 06/15/25 23:00 06/15/25 23:00 06/15/25 23:07 Pulse Rate 108 H 104 H Respiratory Rate 28 H 22 Blood Pressure 131/84 Pulse Oximetry 90 L 93 Oxygen Delivery Method Room Air Oxygen Flow Rate 06/15/25 23:30 06/15/25 23:30 06/16/25 00:00 Pulse Rate 102 H Respiratory Rate 19 Blood Pressure 135/65 133/66 Pulse Oximetry 93 Oxygen Delivery Method Oxygen Flow Rate 06/16/25 00:00 06/16/25 00:30 06/16/25 00:30 Pulse Rate 101 H 95 H Respiratory Rate 19 21 Blood Pressure 131/60 Pulse Oximetry 93 95 Oxygen Delivery Method Oxygen Flow Rate 06/16/25 01:00 06/16/25 01:30 06/16/25 02:00 Pulse Rate 94 H 88 Respiratory Rate 19 20 Blood Pressure 123/58 L Pulse Oximetry 95 96 Oxygen Delivery Method Oxygen Flow Rate 06/16/25 02:00 06/16/25 02:30 06/16/25 02:30 Pulse Rate 92 H 88 Respiratory Rate 17 16 Blood Pressure 119/61 Pulse Oximetry 96 96 Oxygen Delivery Method Nasal Cannula Nasal Cannula Oxygen Flow Rate 2 2 06/16/25 03:00 06/16/25 03:00 06/16/25 03:30 Pulse Rate 85 Respiratory Rate 18 Blood Pressure 114/58 L 112/55 L Pulse Oximetry 96 Oxygen Delivery Method Oxygen Flow Rate 06/16/25 03:30 06/16/25 04:00 06/16/25 04:00 Pulse Rate 81 81 Respiratory Rate 19 19 Blood Pressure 115/57 L Pulse Oximetry 96 96 Oxygen Delivery Method Nasal Cannula Oxygen Flow Rate 2 06/16/25 04:30 06/16/25 04:30 06/16/25 05:00 Pulse Rate 80 Respiratory Rate 17 Blood Pressure 117/58 L 116/65 Pulse Oximetry 92 Oxygen Delivery Method Oxygen Flow Rate 06/16/25 05:00 Pulse Rate 79 Respiratory Rate 19 Blood Pressure Pulse Oximetry 92 Oxygen Delivery Method Nasal Cannula Oxygen Flow Rate 2 Oxygen Delivery Method Nasal Cannula Oxygen Flow Rate 2 Const General: cooperative, comfortable and well developed Orientation: alert and oriented x3 HENMT Head: normal to inspection, normocephalic and atraumatic Face and sinus: normal facial exam Mouth: oral mucosae normal and moist mucous membranes Throat: posterior oropharynx normal Eyes General: appearance normal, both eyes and all related structures Pupils: PERRL EOM: EOM intact bilaterally Neck Neck: normal visual inspection and full ROM Chest Chest: normal inspection of the chest Resp Effort & Inspection: normal respiratory effort and able to speak in complete sentences Auscultation: clear to auscultation bilaterally Cardio Palpation: normal PMI Rate: regular rate Rhythm: regular rhythm Heart Sounds: S1 normal and S2 normal GI Inspection: normal to inspection Palpation: soft and no hepatosplenomegaly Auscultation: normal bowel sounds Skin General: no rashes or lesions noted Lesions: no lesions Rashes: no rashes Trauma: no lacerations or abrasions Neuro General: patient alert, patient awake, patient oriented x3 and no focal motor deficits Cranial Nerves: CN's II-XI intact bilaterally Cognition: normal cognition Speech: speech normal Gait: normal gait Motor: muscle tone normal throughout Sensory Exam: no sensory deficits noted Extrem General: full ROM and no calf tenderness Psych Appearance: grossly normal Mental Status: mental status grossly normal Speech and Movement: speech and movement normal Objective Labs 06/15/25 22:02 06/15/25 22:02 Labs: Laboratory Results - last 24 hr 06/15/25 06/15/25 06/16/25 22:02 22:30 04:08 WBC 7.8 RBC 5.53 H Hgb 16.2 H Hct 48.0 H MCV 86.9 MCH 29.3 MCHC 33.7 RDW 14.0 Plt Count 238 Neut % (Auto) 69.6 Lymph % (Auto) 21.3 L [place] % (Auto) 6.2 Eos % (Auto) 1.5 L Baso % (Auto) 1.4 Neut # (Auto) 5400 Lymph # (Auto) 1700 [place] # (Auto) 500 Eos # (Auto) 100 Baso # (Auto) 100 Sodium 141 Potassium 4.0 Chloride 104 Carbon Dioxide 25 BUN 11 Creatinine 0.74 Estimated GFR > 60 BUN/Creatinine Ratio 14.9 Glucose 124 H Calcium 9.0 Magnesium 2.1 Total Bilirubin 0.8 AST 24 ALT 18 Alkaline Phosphatase 79 Troponin I < 0.012 NT-Pro-B Natriuret Pep 114 Total Protein 8.8 H Albumin 4.9 Globulin 3.9 Albumin/Globulin Ratio 1.3 Lipase 68 Nasal Screen MRSA (PCR) Not detected SARS-CoV-2 (PCR) Negative Influenza A (RT-PCR) Flu a negative Influenza B (RT-PCR) Flu b negative RSV (PCR) Negative Assessment & Plan Assessment & Plan narrative: Acute respiratory failure with hypoxia COPD exacerbation. -Oxygen titration goal of 88-92%, avoid excess oxygen to prevent carbondioxide retention, Monitor mental status. -Albuterol 2.5 mg nebulizer 4 to 6 hours prn -DuoNeb every 4 hours as needed -Continue patient on Solu-Medrol 40 mg every 6 hours for severe exacerbation, reassess and taper or prednisone 60 mg daily. Prednisone 40 mg po daily x 5 days starting on day 2 of admission; -Start Azithromycin -Monitor patient on telemetry. Hyperlipidemia. Restart rosuvastatin. Smoking. Nicotine patch I performed this consultation using real-time telehealth tools, including a live video connection between my location and the patient's location. As the provider for this telehealth service, I attest that I introduced myself to the patient, provided my credentials, disclosed my location, and determined that, based on a review of the patients chart and/or a discussion with members of the patient's treatment team, telemedicine via a real-time, two-way, interactive audio and video platform is an appropriate and effective means of providing this service. The patient and I mutually agree that this visit is appropriate for telemedicine as well. Disclaimer Note: To increase efficiency, your provider may have prepared this document using voice recognition technology. In that case, if a word or phrase is confusing, or does not make sense, this is likely due to a recognition error within the program which was not discovered during the provider?s review. If you believe an error has occurred, please notify your provider?s office at your earliest convenience, so we can correct any mistakes. Time-Based Coding :: 55 min spent with patient and on the chart (including review of chart, obtaining history, exam, reviewing outside data, placing orders, documenting exam and treatment plan, and counseling patient) on 06/15/2025. Quality VTE Deep Vein Thrombosis/Pulmonary Embolism Present on Admission: No MIPS - Admit I confirm the patient?s Advance Care Plan is present, Code status is documented, Surrogate decision maker is in patient?s record [If Yes, STOP here]: Yes MIPS - Meds 'Current medications' to include all prescriptions, [id number] products, herbals, cannabis/cannabidiol products, and vitamin/mineral/dietary (nutritional) supplements. I have utilized all available resources to obtain, update, or review the patient?s current medications. [If Yes, STOP here]: Yes
--- NOTE | 2025-06-16 07:17 | PM.HP.1 ---
History of Present Illness History of Present Illness Date Patient Seen: 06/16/25 Chief complaint: Poss asthma attack, SOB Narrative: From night doctor: 70 years old female with history of COPD, hyperlipidemia presented to the ER with shortness of breath, wheezing and persistent cough for the last several days getting progressively worse despite using her rescue inhalers. The patient denies any fever, chest pain, palpitations, cold symptoms, nausea, vomiting or abdominal pain. Laboratory unremarkable. Chest x-ray unremarkable. EKG nonischemic. She was given DuoNeb, albuterol, Solu-Medrol 125 mg IV and magnesium 2 g IV. Despite the treatment she was borderline hypoxic and was decided to be admitted to hospital for further management. S: She developed acute dyspnea in the last day. She denies recent URI symptoms but does have allergies, she believes. She did improved substantially in the ED with corticosteroids and bronchodilators. She lives in [place], with her . ROS: All else reviewed and otherwise unremarkable except as noted in the history and physical. O: NAD, alert and oriented, fluent speech, calm. Normocephalic skull, EOMI, anicteric sclera, symmetric pupils. Oropharynx unremarkable, no droop. Neck supple, midline trachea, no adenopathy. Lungs clear, normal rate and effort. Heart regular, no murmur gallop or rub. Abdomen is soft, non distended and non tender. Extremities are free of edema. Skin is free of rash or lesions. Joints are not swollen or deformed. Judgment appears to be normal. IMAGING: CXR: No acute cardiopulmonary abnormality is seen. Chest CT: No suspicious pulmonary nodules. LUNG-RADS 1; continued annual screening, if eligible. A/P: 1. COPD exacerbation, active. 2. HLD, stable. 3. Tobacco dependence, active. PLAN: -Asthma exacerbation with corticosteroids, bronchodilators, and consider empiric antibiotics. -we will monitor her progress, and wean oxygen as able. [facility] Medical History Primary osteoarthritis involving multiple joints Mixed hyperlipidemia History of colonic polyps Osteopenia Slow transit constipation Menopausal syndrome Obesity (BMI 30.0-34.9) Impaired fasting glucose Tobacco use disorder Asthma Mumps (~1966) Measles (~1964) Chicken pox (~1994) Surgical History Anesthesia History of bladder surgery (~2015) History of knee replacement (~2004) Family History Father Diabetes mellitus Mother Diabetes mellitus Hyperlipidemia Hypertension Brother Diabetes mellitus Hyperlipidemia Sister Diabetes mellitus Hyperlipidemia Family/Other Diabetes mellitus Hypertension Social History marital status: details: 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[employer], 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 household members: spouse Smoking Status: Current every day smoker alcohol intake: current Meds Home Medications and Allergies Home Medications ?Medication ?Instructions ?Recorded ?Confirmed ?Type albuterol sulfate 90 mcg/actuation 1 puff inhalation DAILY #25.5 grams 05/16/25 05/16/25 Rx aerosol inhaler fluticasone propionate 250 1 inh inhalation BID #180 ea 05/16/25 05/16/25 Rx mcg/actuation blister powder for inhalation rosuvastatin 10 mg tablet 10 mg PO DAILY #90 tabs 05/16/25 05/16/25 Rx doxycycline hyclate 100 mg capsule 100 mg PO BID #10 caps 06/16/25 Rx prednisone 50 mg tablet 50 mg PO DAILY #5 tabs 06/16/25 Rx Allergies Allergy/AdvReac Type Severity Reaction Status Date / Time No Known Drug Allergies Allergy Verified 06/15/25 21:46 Exam Vital Signs (past 8 hours): - 06/15/25 23:30 06/15/25 23:30 06/16/25 00:00 Pulse Rate 102 H Respiratory Rate 19 Blood Pressure 135/65 133/66 Pulse Oximetry 93 Oxygen Delivery Method Oxygen Flow Rate 06/16/25 00:00 06/16/25 00:30 06/16/25 00:30 Pulse Rate 101 H 95 H Respiratory Rate 19 21 Blood Pressure 131/60 Pulse Oximetry 93 95 Oxygen Delivery Method Oxygen Flow Rate 06/16/25 01:00 06/16/25 01:30 06/16/25 02:00 Pulse Rate 94 H 88 Respiratory Rate 19 20 Blood Pressure 123/58 L Pulse Oximetry 95 96 Oxygen Delivery Method Oxygen Flow Rate 06/16/25 02:00 06/16/25 02:30 06/16/25 02:30 Pulse Rate 92 H 88 Respiratory Rate 17 16 Blood Pressure 119/61 Pulse Oximetry 96 96 Oxygen Delivery Method Nasal Cannula Nasal Cannula Oxygen Flow Rate 2 2 06/16/25 03:00 06/16/25 03:00 06/16/25 03:30 Pulse Rate 85 Respiratory Rate 18 Blood Pressure 114/58 L 112/55 L Pulse Oximetry 96 Oxygen Delivery Method Oxygen Flow Rate 06/16/25 03:30 06/16/25 04:00 06/16/25 04:00 Pulse Rate 81 81 Respiratory Rate 19 19 Blood Pressure 115/57 L Pulse Oximetry 96 96 Oxygen Delivery Method Nasal Cannula Oxygen Flow Rate 2 06/16/25 04:30 06/16/25 04:30 06/16/25 05:00 Pulse Rate 80 Respiratory Rate 17 Blood Pressure 117/58 L 116/65 Pulse Oximetry 92 Oxygen Delivery Method Oxygen Flow Rate 06/16/25 05:00 Pulse Rate 79 Respiratory Rate 19 Blood Pressure Pulse Oximetry 92 Oxygen Delivery Method Nasal Cannula Oxygen Flow Rate 2 Oxygen Delivery Method Nasal Cannula Oxygen Flow Rate 2 Objective Labs 06/15/25 22:02 06/16/25 08:40 Labs: Laboratory Results - last 24 hr 06/15/25 06/15/25 06/16/25 22:02 22:30 04:08 WBC 7.8 RBC 5.53 H Hgb 16.2 H Hct 48.0 H MCV 86.9 MCH 29.3 MCHC 33.7 RDW 14.0 Plt Count 238 Neut % (Auto) 69.6 Lymph % (Auto) 21.3 L Foster % (Auto) 6.2 Eos % (Auto) 1.5 L Baso % (Auto) 1.4 Neut # (Auto) 5400 Lymph # (Auto) 1700 Foster # (Auto) 500 Eos # (Auto) 100 Baso # (Auto) 100 Sodium 141 Potassium 4.0 Chloride 104 Carbon Dioxide 25 BUN 11 Creatinine 0.74 Estimated GFR > 60 BUN/Creatinine Ratio 14.9 Glucose 124 H Calcium 9.0 Magnesium 2.1 Total Bilirubin 0.8 AST 24 ALT 18 Alkaline Phosphatase 79 Troponin I < 0.012 NT-Pro-B Natriuret Pep 114 Total Protein 8.8 H Albumin 4.9 Globulin 3.9 Albumin/Globulin Ratio 1.3 Lipase 68 Nasal Screen MRSA (PCR) Not detected SARS-CoV-2 (PCR) Negative Influenza A (RT-PCR) Flu a negative Influenza B (RT-PCR) Flu b negative RSV (PCR) Negative Assessment & Plan Time-Based Coding :: 35 min spent with patient and on the chart (including review of chart, obtaining history, exam, reviewing outside data, placing orders, documenting exam and treatment plan, and counseling patient) on 06/17. Quality VTE Deep Vein Thrombosis/Pulmonary Embolism Present on Admission: No MIPS - Admit I confirm the patient?s Advance Care Plan is present, Code status is documented, Surrogate decision maker is in patient?s record [If Yes, STOP here]: Yes MIPS - Meds 'Current medications' to include all prescriptions, [id number] products, herbals, cannabis/cannabidiol products, and vitamin/mineral/dietary (nutritional) supplements. I have utilized all available resources to obtain, update, or review the patient?s current medications. [If Yes, STOP here]: Yes
[2025-06-16] MEDS: ALBUTEROL/IPRATROPIUM 3 ML AMPUL INH ×2 (07:49→13:42)
[2025-06-16 09:10] LABS: Alanine Aminotransferase 21 IU/L (<35); Albumin 4.7 g/dL (3.5-5.0); Albumin Globulin Ratio 1.4 (1.0-2.8); Alkaline Phosphatase 72 U/L (38-126); Blood Urea Nitrogen 13 mg/dL (7-17); Calcium 9.1 mg/dL (8.4-10.2); Carbon Dioxide 24 mmol/L (22-32); Chloride 104 mmol/L (98-107); Estimated Glomerular Filt Rate > 60 mL/min (>60); Globulin 3.4 g/dL (1.7-4.1); Glucose 186 mg/dL (70-99); HEMOLYSIS 17 (0-50); Magnesium 2.4 mg/dL (1.6-2.3); Potassium 3.9 mmol/L (3.4-5.1); Sodium 141 mmol/L (137-145); Total Protein 8.1 g/dL (6.3-8.2)
[2025-06-16] MEDS: ATORVASTATIN 20 MG TABLET PO (09:20)
[2025-06-16] MEDS: NICOTINE 14 PATCH 14 MG TOP (09:20)
[2025-06-16] MEDS: BENZOCAINE/MENTHOL 1 LOZ PKT 1 EACH PO (09:31)
--- NOTE | 2025-06-16 13:45 | PM.DS.1 ---
History of Present Illness History of Present Illness Chief complaint: Poss asthma attack, SOB Narrative: From night doctor: 70 years old female with history of COPD, hyperlipidemia presented to the ER with shortness of breath, wheezing and persistent cough for the last several days getting progressively worse despite using her rescue inhalers. The patient denies any fever, chest pain, palpitations, cold symptoms, nausea, vomiting or abdominal pain. Laboratory unremarkable. Chest x-ray unremarkable. EKG nonischemic. She was given DuoNeb, albuterol, Solu-Medrol 125 mg IV and magnesium 2 g IV. Despite the treatment she was borderline hypoxic and was decided to be admitted to hospital for further management. S: Admitted with acute dyspnea. No recent URI Sx. Discharge exam: NAD Breathing comfortably Lungs are clear Heart regular Abdomen soft. No edema. IMAGING: CXR: No acute cardiopulmonary abnormality is seen. Chest CT: No suspicious pulmonary nodules. LUNG-RADS 1; continued annual screening, if eligible. A/P: 1. COPD exacerbation, improved. 2. HLD, stable. 3. Tobacco dependence, active. Hospital course: She improved with steroids and bronchodilators. She needed no O2. She was stable for discharge. [N], the patient has documentation of a left ventricle ejection fracture less than or equal to 40%, or moderately or severely reduced left ventricle systolic function. [N], the patient has a history of heart transplant or left ventricular assist device (LVAD). [N], the patient was prescribed an MARY inhibitor at discharge or is already being taken. The patient was not prescribed an MARY-inhibitor because of the following exception: NA. [N], the patient was prescribed Metoprolol succinate, bisoprolol, or carvedilol at discharge. The patient was not prescribed Metoprolol succinate, bisoprolol, or carvedilol at discharge because of the following exception: NA. Discharge Providers Provider Date of admission: 06/15/25 23:25 Discharge Date: 06/16/25 Primary care physician: Bang Lui MD Consults: 06/15/25 23:28 Consult to Cardio/Pulmonary Rehabilitation Routine Comment: Physician Instructions: Evaluate and treat Discharge provider: Doug Fonseca MD Summary Status at Discharge Cognitive/behavioral status at discharge: oriented Functional status at discharge: independent ambulation Overall status at discharge: patient is back to baseline Time Spent with Patient Time spent: Greater than 30 minutes Exam Vital Signs (past 8 hours): - 06/16/25 06:00 06/16/25 06:00 06/16/25 06:30 Temperature Pulse Rate 76 Respiratory Rate 18 Blood Pressure 122/65 127/66 Pulse Oximetry 95 Oxygen Delivery Method Oxygen Flow Rate 06/16/25 06:30 06/16/25 07:00 06/16/25 07:00 Temperature Pulse Rate 73 73 Respiratory Rate 18 18 Blood Pressure 133/65 Pulse Oximetry 96 96 Oxygen Delivery Method Nasal Cannula Oxygen Flow Rate 2 06/16/25 07:50 06/16/25 09:05 06/16/25 09:07 Temperature 97.9 F Pulse Rate 92 H 96 H Respiratory Rate 22 20 Blood Pressure 142/63 H Pulse Oximetry 96 94 Oxygen Delivery Method Nasal Cannula Nasal Cannula Oxygen Flow Rate 2 2 06/16/25 09:25 06/16/25 09:44 06/16/25 12:02 Temperature Pulse Rate Respiratory Rate Blood Pressure Pulse Oximetry 93 91 Oxygen Delivery Method Room Air Nasal Cannula Room Air Oxygen Flow Rate Oxygen Delivery Method Room Air Oxygen Flow Rate 2 Objective Labs 06/15/25 22:02 06/16/25 08:40 Labs: Laboratory Results - last 24 hr 06/15/25 06/15/25 06/16/25 22:02 22:30 04:08 WBC 7.8 RBC 5.53 H Hgb 16.2 H Hct 48.0 H MCV 86.9 MCH 29.3 MCHC 33.7 RDW 14.0 Plt Count 238 Neut % (Auto) 69.6 Lymph % (Auto) 21.3 L Christian % (Auto) 6.2 Eos % (Auto) 1.5 L Baso % (Auto) 1.4 Neut # (Auto) 5400 Lymph # (Auto) 1700 Christian # (Auto) 500 Eos # (Auto) 100 Baso # (Auto) 100 Sodium 141 Potassium 4.0 Chloride 104 Carbon Dioxide 25 BUN 11 Creatinine 0.74 Estimated GFR > 60 BUN/Creatinine Ratio 14.9 Glucose 124 H Calcium 9.0 Magnesium 2.1 Total Bilirubin 0.8 AST 24 ALT 18 Alkaline Phosphatase 79 Troponin I < 0.012 NT-Pro-B Natriuret Pep 114 Total Protein 8.8 H Albumin 4.9 Globulin 3.9 Albumin/Globulin Ratio 1.3 Lipase 68 Nasal Screen MRSA (PCR) Not detected SARS-CoV-2 (PCR) Negative Influenza A (RT-PCR) Flu a negative Influenza B (RT-PCR) Flu b negative RSV (PCR) Negative 06/16/25 08:40 WBC RBC Hgb Hct MCV MCH MCHC RDW Plt Count Neut % (Auto) Lymph % (Auto) Christian % (Auto) Eos % (Auto) Baso % (Auto) Neut # (Auto) Lymph # (Auto) Christian # (Auto) Eos # (Auto) Baso # (Auto) Sodium 141 Potassium 3.9 Chloride 104 Carbon Dioxide 24 BUN 13 Creatinine 0.67 Estimated GFR > 60 BUN/Creatinine Ratio 19.4 Glucose 186 H Calcium 9.1 Magnesium 2.4 H Total Bilirubin 0.5 AST 24 ALT 21 Alkaline Phosphatase 72 Troponin I NT-Pro-B Natriuret Pep Total Protein 8.1 Albumin 4.7 Globulin 3.4 Albumin/Globulin Ratio 1.4 Lipase Nasal Screen MRSA (PCR) SARS-CoV-2 (PCR) Influenza A (RT-PCR) Influenza B (RT-PCR) RSV (PCR) [facility] Medical History Primary osteoarthritis involving multiple joints Mixed hyperlipidemia History of colonic polyps Osteopenia Slow transit constipation Menopausal syndrome Obesity (BMI 30.0-34.9) Impaired fasting glucose Tobacco use disorder Asthma Mumps (~1966) Measles (~1964) Chicken pox (~1994) Surgical History Anesthesia History of bladder surgery (~2015) History of knee replacement (~2004) Family History Father Diabetes mellitus Mother Diabetes mellitus Hyperlipidemia Hypertension Brother Diabetes mellitus Hyperlipidemia Sister Diabetes mellitus Hyperlipidemia Family/Other Diabetes mellitus Hypertension Social History marital status: details: 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 Discharge orders & Medications Prescriptions: New prednisone 50 mg tablet 50 mg PO DAILY Qty: 5 0RF doxycycline hyclate 100 mg capsule 100 mg PO BID Qty: 10 0RF Continued albuterol sulfate 90 mcg/actuation HFA aerosol inhaler 1 puff inhalation DAILY Qty: 25.5 3RF fluticasone propionate 250 mcg/actuation blister with device 1 inh inhalation BID Qty: 180 3RF rosuvastatin 10 mg tablet 10 mg PO DAILY Qty: 90 3RF Follow up/Referrals: Bang Liu MD [Primary Care Provider, Internal Medicine] Discharge Health Status Multidrug resistant organism: No MDRO Diet/Activity/Treatments Diet: Diet as Tolerated Visit Report/Discharge Packet Instructions: DI for Asthma -- Adult Stand Alone Forms: Patient Portal/API Discharge Data Primary Care Provider: Bang Liu V Attending Provider: Reji Fang Admit Date/Time: 06/15/25 23:25 Quality VTE Deep Vein Thrombosis/Pulmonary Embolism Present on Admission: No
--- NOTE | 2025-06-16 14:43 | PC.NURSE ---
Pt transitioned to RA at start of shift from 2L NC, saturating 94%. Walked the unit with pt and pulse ox maintained 89-93%. DC home in private vehicle with spouse, paperwork reviewed and all questions answered.
== END 2025-06-16 14:45 | disposition home or self-care (01) ==
LOC: ED 23:25 → AC 23:25
PROVIDERS: Admitting Provider Internal Medicine; Emergency Provider Student in an Organized Health Care Education/Training Program; PCP Internal Medicine; Referring Provider Student in an Organized Health Care Education/Training Program; Visit Provider Internal Medicine
DX: J44.1 Chronic obstructive pulmonary disease with (acute) exacerbation (principal); J96.01 Acute respiratory failure with hypoxia; E78.5 Hyperlipidemia, unspecified; F17.200 Nicotine dependence, unspecified, uncomplicated; R00.1 Bradycardia, unspecified
CPT/HCPCS: 36415; 71045; 80053; 83690; 83735; 83880; 84484; 85025; 87637; 87797; 93005; 93010; 94640; 94760; 96365; 96367; 96375; 96376; 99284; 99285; G0378; J2919; J3475; J7060; J7613